=== PATIENT | female | born 1975 | race Caucasian/White ===

== ENCOUNTER 2020-05-21 19:13 | Emergency (ER) | payer OTHER ==
[~2020-05-21] VITALS: Ht 154.9 cm; Wt 65.8 kg
[~2020-05-21 19:13] MED LIST: ZOLOFT100 MG
[2020-05-21] MEDS ORDERED: BENADRYL25 MG (19:29)
== END 2020-05-21 23:31 | disposition home or self-care (01) ==
LOC: ER 19:13
DX: L50.0 Allergic urticaria (principal); T78.49XA Other allergy, initial encounter